=== PATIENT | female | born 1990 | race African-American/Black ===

== ENCOUNTER 2025-01-26 17:42 | Emergency (ER) | payer MEDICAID, MEDICARE ==
[~2025-01-26] VITALS: Ht 188 cm; Wt 118.0 kg
[2025-01-26 17:45] VITALS: O2SAT 99
[2025-01-26] MEDS: LIDOCAINE 5% PATCH TOP SCH (21:17)
[2025-01-26] MEDS: CYCLOBENZAPRINE 10MG TABLET PO ONE (21:17)
[2025-01-26] MEDS: KETOROLAC 30MG/ML VIAL IM ONE (21:17)
[2025-01-26 22:17] LABS: CLARITY URINE CLOUDY (CLEAR); COLOR URINE DARK YELLOW (YELLOW); GLUCOSE URINE NEGATIVE (NEGATIVE); KETONES URINE 1+ (NEGATIVE); LEUKOCYTE ESTERASE URINE NEGATIVE (NEGATIVE); NITRITE URINE NEGATIVE (NEGATIVE); OCCULT BLOOD URINE NEGATIVE (NEGATIVE); PH URINE 5.5 (4.5-8.0); PROTEIN URINE 1+ (NEGATIVE); SPECIFIC GRAVITY URINE 1.040 (1.005-1.030); UROBILINOGEN URINE 1.0 E.U./dL (0.2-1.0)
[2025-01-26 22:47] LABS: RBC URINE NONE SEEN /hpf (0-2); WBC URINE 0-2 /hpf (0-2)
[2025-01-26 22:48] LABS: BACTERIA URINE NONE SEEN; SQUAMOUS EPITHELIAL CELL URINE 2+ /lpf (RARE/1+)
[2025-01-26] MEDS ORDERED: TOPUD MT (23:23)
[2025-01-26] MEDS ORDERED: IBUP-2437 MT (23:23)
[2025-01-27 00:30] VITALS: BP 110/60; PULSE 78; RESP 13; TEMP 36.7; O2SAT 100
== END 2025-01-27 00:35 | disposition home or self-care (01) ==
LOC: ER 17:42
DX: M54.9 Dorsalgia, unspecified (principal); F20.9 Schizophrenia, unspecified; Z79.899 Other long term (current) drug therapy
CPT/HCPCS: 99284; 81003; 81025; 72100; 96372; J1885